=== PATIENT | male | born 1990 | race Caucasian/White ===

== ENCOUNTER 2016-04-05 11:06 | Emergency (ER) | payer MEDICAID ==
[~2016-04-05] VITALS: Ht 182.9 cm; Wt 79.4 kg
[2016-04-05 11:06] VITALS: BP 124/71; PULSE 78; RESP 18; TEMP 97.8; O2SAT 99
== END 2016-04-05 11:26 | disposition left against medical advice (07) ==
LOC: SED 11:06
DX: G89.29 Other chronic pain (principal); R03.0 Elevated blood-pressure reading, without diagnosis of hypertension; F98.8 Other specified behavioral and emotional disorders with onset usually occurring in childhood and adolescence; Z88.0 Allergy status to penicillin
CPT/HCPCS: 99281

== ENCOUNTER 2016-09-09 17:37 | Inpatient (IN) | payer MEDICAID ==
[~2016-09-09] VITALS: Ht 188 cm; Wt 89.8 kg
[2016-09-09 17:37] VITALS: BP_SYST 134
[2016-09-09] MEDS ORDERED: NACL 0.9% 1,000 ML IV SCH (17:51)
[2016-09-09] MEDS ORDERED: ONDANSETRON HCL 4 MG/2 ML VIAL IVP ONE (18:00)
[2016-09-09] MEDS ORDERED: MORPHINE 4 MG/ML INJ. SYRINGE IVP ONE (18:00)
[2016-09-09] MEDS ORDERED: VANCOMYCIN HCL 1,000 MG in D5W 250 ML IV ONE (18:00)
[2016-09-09] MEDS ORDERED: HYDROcodone/ACETAMIN 5-325 MG TAB (NORCO/ VICODIN) PO ONE (18:15)
[2016-09-09] MEDS ORDERED: ONDANSETRON 4 MG ODT TAB PO ONE (18:15)
[2016-09-09 18:24] LABS: BASOPHILS % (AUTO) 0.2 % (0.0-2.0); EOSINOPHILS # (AUTO) 0.2 K/uL (0.0-0.4); EOSINOPHILS % (AUTO) 1.5 % (0.0-4.0); HEMOGLOBIN 12.6 g/dL (14.0-18.0); LYMPHOCYTES # (AUTO) 1.7 K/uL (1.0-5.5); LYMPHOCYTES % (AUTO) 16.7 % (20.5-51.5); MEAN CORPUSCULAR HEMOGLOBIN 31 pg (27-31); MEAN CORPUSCULAR HGB CONC 34 % (32-36); MEAN CORPUSCULAR VOLUME 90 fL (79.0-98.0); MONOCYTES # (AUTO) 0.6 K/uL (0.0-1.0); MONOCYTES % (AUTO) 6.3 % (1.7-9.3); NEUTROPHILS # (AUTO) 7.8 K/uL (1.8-7.7); NEUTROPHILS % (AUTO) 75.3 % (40.0-70.0); PLATELET COUNT (AUTO) 319 K/uL (130-430); RED BLOOD CELL COUNT(AUTO) 4.14 MIL/uL (4.2-6.2); RED CELL DISTRIBUTION WIDTH 11.5 % (9.0-15.0); WHITE BLOOD COUNT (AUTO) 10.3 K/uL (4.8-10.8)
[2016-09-09 18:42] LABS: CALCIUM 8.8 mg/dL (8.4-11.0); CREATININE 1.19 mg/dL (0.55-1.30); POTASSIUM 3.6 mmol/L (3.5-5.1)
[2016-09-09] MEDS ORDERED: VANCOMYCIN HCL 1000 MG/VIAL IV ONE ×2 (18:45→20:29)
[2016-09-09 18:53] LABS: INR 0.9 (0.80-1.20)
[2016-09-09] MEDS ORDERED: MORPHINE 2 MG/ML INJ. SYRINGE IVP PRN ×2 (19:00→21:00)
[2016-09-09] MEDS ORDERED: SER25 PO (19:12)
[2016-09-09] MEDS ORDERED: ADDERAL PO (19:12)
[2016-09-09] MEDS ORDERED: OXYC20TA55 PO (19:12)
[2016-09-09] MEDS ORDERED: GABA-531 PO (19:12)
[2016-09-09 20:04] VITALS: BP_SYST 114
[2016-09-09 20:12] VITALS: BP_SYST 142
[2016-09-09] MEDS ORDERED: VANCOMYCIN HCL 500 MG/VIAL IV ONE (20:29)
[2016-09-09] MEDS ORDERED: MAGNESIUM SULFATE 50 ML IV PRN (21:00)
[2016-09-09] MEDS ORDERED: ONDANSETRON HCL 4 MG/2 ML VIAL IVP PRN (21:00)
[2016-09-09] MEDS ORDERED: POTASSIUM CHLORIDE 10 MEQ TAB.PRT.SR PO PRN (21:00)
[2016-09-09] MEDS ORDERED: QUEtiapine FUMARATE 25 MG TABLET PO SCH (21:00)
[2016-09-09] MEDS ORDERED: ACETAMINOPHEN 325 MG TABLET PO PRN (21:00)
[2016-09-09] MEDS ORDERED: DOCUSATE SODIUM 100 MG CAPSULE PO PRN (21:00)
[2016-09-09] MEDS ORDERED: ZOLPIDEM TARTRATE 5 MG TABLET PO PRN (21:00)
[2016-09-09] MEDS ORDERED: LORazepam 2 MG/ML VIAL IVP PRN (21:00)
[2016-09-09] MEDS: GABAPENTIN 300 MG CAPSULE PO SCH (21:12)
[2016-09-09] MEDS: oxyCODONE HCL 10 MG TAB.ER.12H PO SCH (21:13)
[2016-09-09] MEDS: VANCOMYCIN HCL 1,250 MG in NS 250 ML IV SCH (21:13)
[2016-09-10 00:08] VITALS: BP_SYST 147
[2016-09-10 03:59] VITALS: BP_SYST 132
[2016-09-10] MEDS: VANCOMYCIN HCL 1,250 MG in NS 250 ML IV SCH (05:15)
[2016-09-10] MEDS ORDERED: SULF1TAB48 PO (07:18)
[2016-09-10 08:00] VITALS: BP_SYST 131
[2016-09-10] MEDS: GABAPENTIN 300 MG CAPSULE PO SCH (08:21)
[2016-09-10] MEDS: oxyCODONE HCL 10 MG TAB.ER.12H PO SCH (08:22)
[2016-09-10] MEDS ORDERED: ADDERAL 30 MG PO SCH (09:00)
[2016-09-10] MEDS ORDERED: ADDERALL 30 MG PO SCH (09:00)
[2016-09-10 09:17] VITALS: BP_SYST 131
== END 2016-09-10 10:26 | disposition home or self-care (01) | DRG 383 ==
LOC: SED 17:37 → SMU 18:55
PROVIDERS: ADMIT General Practice; ATTEND General Practice
DX: L03.011 Cellulitis of right finger (principal); F11.20 Opioid dependence, uncomplicated; F42.9 Obsessive-compulsive disorder, unspecified; M79.7 Fibromyalgia; Z88.0 Allergy status to penicillin; Z79.899 Other long term (current) drug therapy
CPT/HCPCS: 36415; 80048; 83605; 85025; 85610-TC; 85730-TC; 87040-TC; 96374; 96375; 99285; J2270; J2405; J3370; J7030; J7040; J7050; Q0162

== ENCOUNTER 2016-09-24 14:55 | Emergency (ER) | payer MEDICAID ==
[~2016-09-24] VITALS: Ht 182.9 cm; Wt 90.7 kg
[~2016-09-24 14:55] MED LIST: ADDERAL PO; GABA-531 PO; OXYC20TA55 PO; SER25 PO; SULF1TAB48 PO
[2016-09-24 15:00] VITALS: BP_SYST 147
[2016-09-24] MEDS ORDERED: ONDANSETRON HCL 4 MG/2 ML VIAL IVP ONE (16:00)
[2016-09-24] MEDS ORDERED: MORPHINE 2 MG/ML INJ. SYRINGE IV ONE (16:00)
[2016-09-24] MEDS ORDERED: ONDANSETRON 4 MG ODT TAB PO ONE (16:15)
[2016-09-24] MEDS ORDERED: MORPHINE 2 MG/ML INJ. SYRINGE IM ONE (16:15)
[2016-09-24 16:22] LABS: BASOPHILS # (AUTO) 0.1 K/uL (0.0-0.2); BASOPHILS % (AUTO) 0.9 % (0.0-2.0); EOSINOPHILS # (AUTO) 0.2 K/uL (0.0-0.4); EOSINOPHILS % (AUTO) 3.1 % (0.0-4.0); HEMATOCRIT 34.7 % (36-54); HEMOGLOBIN 11.7 g/dL (14.0-18.0); LYMPHOCYTES # (AUTO) 1.5 K/uL (1.0-5.5); LYMPHOCYTES % (AUTO) 24.3 % (20.5-51.5); MEAN CORPUSCULAR HEMOGLOBIN 30 pg (27-31); MEAN CORPUSCULAR HGB CONC 34 % (32-36); MEAN CORPUSCULAR VOLUME 90 fL (79.0-98.0); MONOCYTES # (AUTO) 0.4 K/uL (0.0-1.0); MONOCYTES % (AUTO) 5.7 % (1.7-9.3); RED BLOOD CELL COUNT(AUTO) 3.87 MIL/uL (4.2-6.2); RED CELL DISTRIBUTION WIDTH 11.6 % (9.0-15.0); WHITE BLOOD COUNT (AUTO) 6.2 K/uL (4.8-10.8)
[2016-09-24 16:25] LABS: PLATELET COUNT (AUTO) 446 K/uL (130-430)
[2016-09-24 16:28] LABS: ANION GAP 8 (5-15); CALCIUM 8.7 mg/dL (8.4-11.0); CHLORIDE 104 mmol/L (98-107); CREATININE 0.99 mg/dL (0.55-1.30); GLUCOSE 99 mg/dL (70-99); POTASSIUM 3.7 mmol/L (3.5-5.1); SODIUM SERUM 141 mmol/L (136-145); UREA NITROGEN, BLOOD 12 mg/dL (8-21)
[2016-09-24] MEDS ORDERED: MORPHINE 4 MG/ML INJ. SYRINGE IM ONE (16:30)
[2016-09-24 16:39] LABS: GFR AFRICAN AMERICAN 117 mL/min (>90)
[2016-09-24 16:40] LABS: ALANINE AMINOTRANSFERASE 71 U/L (12-78); ALBUMIN 3.9 g/dL (3.4-4.8); AMYLASE 45 U/L (0-100); ASPARTATE AMINOTRANSFERASE 46 U/L (10-37); LIPASE 107 U/L (73-393); TOTAL BILIRUBIN 0.3 mg/dL (0.0-1.0); TOTAL PROTEIN, SERUM 8.1 g/dL (6.4-8.3)
[2016-09-24 18:01] LABS: BILIRUBIN,URINE NEGATIVE (NEGATIVE); BLOOD, URINE NEGATIVE (NEGATIVE); CLARITY/URINE CLEAR (CLEAR); COLOR,URINE YELLOW (YELLOW); GLUCOSE,URINE NEGATIVE (NEGATIVE); KETONES,URINE NEGATIVE (NEGATIVE); LEUKOCYTE ESTERASE ,URINE NEGATIVE (NEGATIVE); NITRITE, URINE NEGATIVE (NEGATIVE); PROTEIN URINE NEGATIVE (NEGATIVE); UROBILINOGEN,URINE 0.2 (0.2-1.0)
[2016-09-24 18:47] VITALS: BP_SYST 137
== END 2016-09-24 18:47 | disposition home or self-care (01) ==
LOC: SED 14:55
DX: T63.391A Toxic effect of venom of other spider, accidental (unintentional), initial encounter (principal); K82.8 Other specified diseases of gallbladder; R10.9 Unspecified abdominal pain; Y92.89 Other specified places as the place of occurrence of the external cause
CPT/HCPCS: 36415; 76700; 80053; 81003; 82150; 83690; 84484; 85025; 96372; 99285; J2270; Q0162

== ENCOUNTER 2017-08-17 19:29 | Emergency (ER) | payer MEDICAID ==
[~2017-08-17] VITALS: Ht 177.8 cm; Wt 93.0 kg
[2017-08-17 19:50] VITALS: BP_SYST 164
--- NOTE | 2017-08-17 20:00 | NUR ---
Patient to ER bed 4 to gown for evaluation. Side rails up.
--- NOTE | 2017-08-17 20:05 | NUR ---
Patient presents to ER with complaint of generalized rashes x2 days. Patient states episodes of pruritus. No other symptoms or complaints.
--- NOTE | 2017-08-17 20:14 | NUR ---
AMANDA Hernandez at bedside for medical evaluation.
--- NOTE | 2017-08-17 20:44 | NUR ---
Patient given written and verbal discharge instructions and verbalizes understanding. ER MD Hernandez discussed with patient the results and treatment provided. Patient in stable condition. ID arm band removed. Rx of Medrol given. Patient educated on pain management and to follow up with PMD. Pain Scale 0/10. Opportunity for questions provided and answered. Medication side effect fact sheet provided.
[2017-08-17 20:48] VITALS: BP_SYST 150
== END 2017-08-17 20:48 | disposition home or self-care (01) ==
LOC: SED 19:29
DX: L23.9 Allergic contact dermatitis, unspecified cause (principal); F29 Unspecified psychosis not due to a substance or known physiological condition; M85.2 Hyperostosis of skull; M79.7 Fibromyalgia; Z88.0 Allergy status to penicillin; Z79.899 Other long term (current) drug therapy
CPT/HCPCS: 99283

== ENCOUNTER 2018-03-06 22:08 | Emergency (ER) | payer MEDICAID ==
[~2018-03-06] VITALS: Ht 182.9 cm; Wt 99.8 kg
[2018-03-06 22:25] VITALS: BP_SYST 158
--- NOTE | 2018-03-06 22:28 | NUR ---
Patient to ER bed 07 to gown for evaluation. Side rails up. Report given to JENNYFER CARTER.
--- NOTE | 2018-03-06 22:30 | NUR ---
Patient A/O x 4, presented to ED c/o fever, headache and body aches since yesterday, pain 10/14. Pt took Tylenol and Oxycodone with no relief. Pt also c/o of nausea and vomiting. Pt denies neck pain. Pt denies chills. Pt denies chest pain. Pt denies diarrhea or constipation. Patient VSS. No SOB or distress noted. Will continue to monitor.
--- NOTE | 2018-03-06 22:34 | NUR ---
ER Dr. Robertson at bedside examining patient.
[2018-03-06] MEDS ORDERED: NACL 0.9% 1,000 ML IV ONE (22:45)
[2018-03-06] MEDS ORDERED: PROCHLORPERAZINE EDISYLATE 10 MG/2 ML VIAL IVP ONE (22:45)
[2018-03-06] MEDS ORDERED: DIPHENHYDRAMINE INJ 50 MG/ML VIAL IVP ONE (22:45)
--- NOTE | 2018-03-06 22:56 | NUR ---
#22 gauge angiocath placed to R hand. Use of asceptic technique. Opsite placed over site. Blood return noted. Flushed with 10 cc of normal saline. No evidence of infiltration noted. Patient tolerated well.
[2018-03-06] MEDS ORDERED: MORPHINE 4 MG/ML INJ. SYRINGE IVP ONE (23:00)
--- NOTE | 2018-03-06 23:20 | NUR ---
Patient VSS. IVF infusing well. Patient verbalizes relief. No SOB or distress noted. Will continue to monitor.
[2018-03-06] MEDS ORDERED: MAG HYDROX/AL HYDROX/SIMETH 30 ML, BELLADONNA ALKALOIDS/PHENOBARB 10 ML, LIDOCAINE VISC... PO ONE ×3 (23:45)
[2018-03-07 00:45] VITALS: BP_SYST 140
--- NOTE | 2018-03-07 00:45 | NUR ---
Patient given written and verbal discharge instructions and verbalizes understanding. ER MD discussed with patient the results and treatment provided. Patient in stable condition. ID arm band removed. IV catheter removed intact and dressing applied, no active bleeding. Rx of Zofran, Prilosec, Tamiflu given. Patient educated on pain management and to follow up with PMD. Pain Scale 2/10. Opportunity for questions provided and answered. Medication side effect fact sheet provided.
== END 2018-03-07 00:45 | disposition home or self-care (01) ==
LOC: SED 22:08
DX: J11.1 Influenza due to unidentified influenza virus with other respiratory manifestations (principal); R51 Headache; R11.2 Nausea with vomiting, unspecified; R03.0 Elevated blood-pressure reading, without diagnosis of hypertension; M79.7 Fibromyalgia; Z90.49 Acquired absence of other specified parts of digestive tract; Z88.0 Allergy status to penicillin; Z79.899 Other long term (current) drug therapy
CPT/HCPCS: 96361; 96374; 96375; 99283; J0780; J1200; J2001; J2270; J7030

== ENCOUNTER 2018-06-10 22:06 | Emergency (ER) | payer MEDICAID ==
[~2018-06-10] VITALS: Ht 182.9 cm; Wt 99.8 kg
[2018-06-10 22:32] VITALS: BP_SYST 144
[2018-06-10] MEDS ORDERED: GABA-331 PO (22:41)
[2018-06-10] MEDS ORDERED: KETOROLAC TROMETHAMINE 15 MG VIAL IVP ONE (22:45)
[2018-06-10] MEDS ORDERED: ACETAMINOPHEN 500 MG TABLET PO ONE (22:45)
[2018-06-10] MEDS ORDERED: NS 1000 ML IV.SOLN IV ONE (22:45)
[2018-06-10 23:44] LABS: HEMOGLOBIN 12.9 g/dL (14.0-18.0); MEAN CORPUSCULAR HEMOGLOBIN 32 pg (27-31); MEAN CORPUSCULAR HGB CONC 36 % (32-36); MEAN CORPUSCULAR VOLUME 88 fL (79.0-98.0); PLATELET COUNT (AUTO) 429 K/uL (130-430); RED BLOOD CELL COUNT(AUTO) 4.07 MIL/uL (4.2-6.2); RED CELL DISTRIBUTION WIDTH 15.8 % (9.0-15.0)
[2018-06-10 23:45] LABS: BASOPHILS % (AUTO) 0.6 % (0.0-2.0); EOSINOPHILS # (AUTO) 0.1 K/uL (0.0-0.4); EOSINOPHILS % (AUTO) 1.9 % (0.0-4.0); LYMPHOCYTES # (AUTO) 1.2 K/uL (1.0-5.5); LYMPHOCYTES % (AUTO) 20.5 % (20.5-51.5); MONOCYTES # (AUTO) 0.6 K/uL (0.0-1.0); MONOCYTES % (AUTO) 10.2 % (1.7-9.3); NEUTROPHILS % (AUTO) 66.8 % (40.0-70.0)
[2018-06-10 23:49] LABS: BILIRUBIN,URINE NEGATIVE (NEGATIVE); BLOOD, URINE 1+ (NEGATIVE); CLARITY/URINE CLEAR (CLEAR); COLOR,URINE YELLOW (YELLOW); GLUCOSE,URINE NEGATIVE (NEGATIVE); KETONES,URINE NEGATIVE (NEGATIVE); LEUKOCYTE ESTERASE ,URINE NEGATIVE (NEGATIVE); NITRITE, URINE NEGATIVE (NEGATIVE); PH,URINE 5.5 (5.0-8.0); PROTEIN URINE NEGATIVE (NEGATIVE); UROBILINOGEN,URINE 0.2 (0.2-1.0)
[2018-06-10 23:56] LABS: BACTERIA,URINE FEW /HPF (None Seen); WBC,URINE 0-3 /HPF (0-3)
[2018-06-11] MEDS ORDERED: MORPHINE 4 MG/ML INJ. SYRINGE IVP ONE
[2018-06-11 00:40] LABS: CALCIUM 8.5 mg/dL (8.4-11.0); CREATININE 1.2 mg/dL (0.55-1.30); POTASSIUM 3.6 mmol/L (3.5-5.1)
[2018-06-11 00:45] LABS: ALBUMIN 3.4 g/dL (3.4-4.8); TOTAL BILIRUBIN 0.3 mg/dL (0.0-1.0)
[2018-06-11 01:04] VITALS: BP_SYST 136
[2018-06-11 09:00] LABS: BARBITURATE, URINE NEGATIVE (NEG <=200); BENZODIAZEPINE, URINE NEGATIVE (NEG <=150); CANNABINOID, URINE POSITIVE (NEG <=50); COCAINE, URINE NEGATIVE (NEG <=150); METHAMPHETAMINES SCREEN,URINE NEGATIVE (NEG <=500); OPIATE, URINE POSITIVE (NEG <=100); PHENCYCLIDINE SCREEN,URINE NEGATIVE (NEG <=25); UR TRICYCLIC ANTIDEPRESSANTS NEGATIVE (NEG <=300); URINE AMPHETAMINE POSITIVE (NEG <=500); URINE METHADONE NEGATIVE (NEG <=200); URINE OXYCODONE SCREEN POSITIVE (NEG <=100); URINE PROPOXYPHENE SCREEN NEGATIVE (NEG <=300)
== END 2018-06-11 01:04 | disposition home or self-care (01) ==
LOC: SED 22:06
DX: N20.0 Calculus of kidney (principal); K59.00 Constipation, unspecified; L03.113 Cellulitis of right upper limb; D64.9 Anemia, unspecified; J11.1 Influenza due to unidentified influenza virus with other respiratory manifestations; R11.2 Nausea with vomiting, unspecified; F17.210 Nicotine dependence, cigarettes, uncomplicated; R03.0 Elevated blood-pressure reading, without diagnosis of hypertension; M79.7 Fibromyalgia; F98.8 Other specified behavioral and emotional disorders with onset usually occurring in childhood and adolescence; Z88.0 Allergy status to penicillin; Z79.899 Other long term (current) drug therapy
CPT/HCPCS: 36415; 74176; 80053; 80307; 81000; 83605; 85025; 86710; 87040; 87086; 96361; 96374; 96375; 99284; J1885; J2270; J7030

== ENCOUNTER 2018-11-28 22:57 | Emergency (ER) | payer MEDICAID ==
[~2018-11-28] VITALS: Ht 195.6 cm; Wt 95.3 kg
[~2018-11-28 22:57] MED LIST changes: +GABA-331 PO; -GABA-531 PO
[2018-11-28 23:09] VITALS: BP_SYST 156
[2018-11-28] MEDS ORDERED: NACL 0.9% 1,000 ML IV ONE (23:51)
[2018-11-29] MEDS ORDERED: PANTOPRAZOLE SODIUM 40 MG/VIAL (PROTONIX) IVP ONE
[2018-11-29] MEDS ORDERED: ONDANSETRON HCL 4 MG/2 ML VIAL IVP ONE
[2018-11-29] MEDS ORDERED: ONDA4TAB5 PO (00:17)
[2018-11-29] MEDS ORDERED: CARI350T27 PO (00:18)
[2018-11-29] MEDS ORDERED: TRAM50TA2 PO (00:19)
[2018-11-29] MEDS ORDERED: METR500T PO (00:20)
[2018-11-29] MEDS ORDERED: DIAZ5TAB4 PO (00:21)
[2018-11-29] MEDS ORDERED: FAMO20TA8 PO (00:21)
[2018-11-29] MEDS ORDERED: CEFU250T85 PO (00:22)
[2018-11-29 00:58] LABS: BASOPHILS % (AUTO) 0.4 % (0.0-2.0); BILIRUBIN,URINE NEGATIVE (NEGATIVE); BLOOD, URINE NEGATIVE (NEGATIVE); CLARITY/URINE CLEAR (CLEAR); COLOR,URINE YELLOW (YELLOW); EOSINOPHILS # (AUTO) 0.1 K/uL (0.0-0.4); EOSINOPHILS % (AUTO) 1.4 % (0.0-4.0); GLUCOSE,URINE NEGATIVE (NEGATIVE); HEMATOCRIT 35.2 % (36-54); HEMOGLOBIN 12.3 g/dL (14.0-18.0); KETONES,URINE NEGATIVE (NEGATIVE); LEUKOCYTE ESTERASE ,URINE NEGATIVE (NEGATIVE); LYMPHOCYTES # (AUTO) 1.4 K/uL (1.0-5.5); LYMPHOCYTES % (AUTO) 20.9 % (20.5-51.5); MEAN CORPUSCULAR HEMOGLOBIN 32 pg (27-31); MEAN CORPUSCULAR HGB CONC 35 % (32-36); MEAN CORPUSCULAR VOLUME 92 fL (79.0-98.0); MONOCYTES # (AUTO) 0.5 K/uL (0.0-1.0); MONOCYTES % (AUTO) 7.3 % (1.7-9.3); NEUTROPHILS # (AUTO) 4.5 K/uL (1.8-7.7); NITRITE, URINE NEGATIVE (NEGATIVE); PLATELET COUNT (AUTO) 243 K/uL (130-430); PROTEIN URINE NEGATIVE (NEGATIVE); RED BLOOD CELL COUNT(AUTO) 3.84 MIL/uL (4.2-6.2); RED CELL DISTRIBUTION WIDTH 14.2 % (9.0-15.0); UROBILINOGEN,URINE 0.2 (0.2-1.0); WHITE BLOOD COUNT (AUTO) 6.5 K/uL (4.8-10.8)
[2018-11-29 01:15] LABS: BARBITURATE, URINE NEGATIVE (NEG <=200); BENZODIAZEPINE, URINE POSITIVE (NEG <=150); CANNABINOID, URINE POSITIVE (NEG <=50); CHLORIDE 104 mmol/L (98-107); COCAINE, URINE NEGATIVE (NEG <=150); GLUCOSE 108 mg/dL (70-99); METHAMPHETAMINES SCREEN,URINE NEGATIVE (NEG <=500); OPIATE, URINE NEGATIVE (NEG <=100); PHENCYCLIDINE SCREEN,URINE NEGATIVE (NEG <=25); UR TRICYCLIC ANTIDEPRESSANTS NEGATIVE (NEG <=300); UREA NITROGEN, BLOOD 11 mg/dL (8-21); URINE AMPHETAMINE NEGATIVE (NEG <=500); URINE METHADONE NEGATIVE (NEG <=200); URINE OXYCODONE SCREEN NEGATIVE (NEG <=100); URINE PROPOXYPHENE SCREEN NEGATIVE (NEG <=300)
[2018-11-29 01:17] LABS: PROTHROMBIN TIME 10.4 SECS (9.5-12.5)
[2018-11-29 01:21] LABS: ALBUMIN 3.8 g/dL (3.4-4.8); ASPARTATE AMINOTRANSFERASE 25 U/L (10-37); TOTAL BILIRUBIN 0.3 mg/dL (0.0-1.0)
[2018-11-29 01:23] LABS: ALANINE AMINOTRANSFERASE 46 U/L (12-78); ANION GAP 7 (5-15); CALCIUM 8.9 mg/dL (8.4-11.0); CREATININE 0.86 mg/dL (0.55-1.30); LIPASE 60 U/L (73-393); POTASSIUM 4.1 mmol/L (3.5-5.1); SODIUM SERUM 140 mmol/L (136-145)
[2018-11-29 01:26] LABS: ALCOHOL, BLOOD < 3 mg/dL (<10); GFR AFRICAN AMERICAN 134 mL/min (>90)
[2018-11-29] MEDS ORDERED: fentaNYL CITRATE/PF 100 MCG/2 ML AMP IVP ONE ×2 (01:30)
[2018-11-29 03:00] VITALS: BP_SYST 133
[2018-11-29 04:46] LABS: ACETAMINOPHEN < 1 ug/mL (1-30)
== END 2018-11-29 03:00 | disposition home or self-care (01) ==
LOC: SED 22:57
DX: R45.851 Suicidal ideations (principal); M79.7 Fibromyalgia; F90.9 Attention-deficit hyperactivity disorder, unspecified type; Z88.0 Allergy status to penicillin; Z79.899 Other long term (current) drug therapy
CPT/HCPCS: 36415; 70450; 71045; 80053; 80307; 81003; 83690; 84484; 85025; 85610; 85730; 96374; 96375; 96376; 99284; C9113; G0480; G0481; G0482; J2405; J3010; J7030

== ENCOUNTER 2018-12-28 03:03 | Emergency (ER) | payer MEDICAID ==
[~2018-12-28] VITALS: Ht 182.9 cm; Wt 99.8 kg
[~2018-12-28 03:03] MED LIST changes: -ADDERAL PO; +CARI350T27 PO; +CEFU250T85 PO; +DIAZ5TAB4 PO; +FAMO20TA8 PO; +METR500T PO; +ONDA4TAB5 PO; -OXYC20TA55 PO; -SER25 PO; +TRAM50TA2 PO
[2018-12-28 03:10] VITALS: BP_SYST 92
--- NOTE | 2018-12-28 03:15 | NUR ---
Patient to ER bed 8 for evaluation. Side rails up.
--- NOTE | 2018-12-28 03:30 | NUR ---
Pt complains of sudden right side abdominal pain and nausea since midnight. Pt states he was sleeping and woke up suddenly with pain. Pt has not vomited but states he has been dry-heaving. Pt denies fever. NO other injuries/complaints per patient or noted.
--- NOTE | 2018-12-28 03:38 | NUR ---
ER Dr. Fam at bedside examining patient.
[2018-12-28] MEDS ORDERED: ONDANSETRON HCL 4 MG/2 ML VIAL IVP ONE (03:45)
[2018-12-28] MEDS ORDERED: KETOROLAC TROMETHAMINE 30 MG VIAL IVP ONE (03:45)
[2018-12-28] MEDS ORDERED: PANTOPRAZOLE SODIUM 40 MG/VIAL (PROTONIX) IVP ONE (04:00)
[2018-12-28] MEDS ORDERED: fentaNYL CITRATE/PF 100 MCG/2 ML AMP IVP ONE (04:00)
[2018-12-28] MEDS ORDERED: METOCLOPRAMIDE HCL 10 MG/2 ML VIAL IVP ONE (04:00)
[2018-12-28 04:02] LABS: BASOPHILS % (AUTO) 0.5 % (0.0-2.0); EOSINOPHILS # (AUTO) 0.1 K/uL (0.0-0.4); EOSINOPHILS % (AUTO) 1.5 % (0.0-4.0); HEMATOCRIT 41.2 % (36-54); LYMPHOCYTES # (AUTO) 1.6 K/uL (1.0-5.5); LYMPHOCYTES % (AUTO) 22.6 % (20.5-51.5); MEAN CORPUSCULAR HEMOGLOBIN 31 pg (27-31); MEAN CORPUSCULAR HGB CONC 34 % (32-36); MEAN CORPUSCULAR VOLUME 92 fL (79.0-98.0); MONOCYTES # (AUTO) 0.5 K/uL (0.0-1.0); MONOCYTES % (AUTO) 7.2 % (1.7-9.3); NEUTROPHILS # (AUTO) 4.7 K/uL (1.8-7.7); NEUTROPHILS % (AUTO) 68.2 % (40.0-70.0); PLATELET COUNT (AUTO) 288 K/uL (130-430); RED BLOOD CELL COUNT(AUTO) 4.49 MIL/uL (4.2-6.2); RED CELL DISTRIBUTION WIDTH 13.9 % (9.0-15.0); WHITE BLOOD COUNT (AUTO) 6.9 K/uL (4.8-10.8)
[2018-12-28 04:16] LABS: CALCIUM 8.7 mg/dL (8.4-11.0); CREATININE 0.98 mg/dL (0.55-1.30); POTASSIUM 4.3 mmol/L (3.5-5.1)
--- NOTE | 2018-12-28 04:16 | NUR ---
Ultrasound at bedside. Pt tolerated well.
[2018-12-28 04:20] LABS: ALBUMIN 4.2 g/dL (3.4-4.8); TOTAL BILIRUBIN 0.2 mg/dL (0.0-1.0)
[2018-12-28] MEDS ORDERED: NACL 0.9% 1,000 ML IV ONE (04:30)
[2018-12-28 06:19] VITALS: BP_SYST 102
--- NOTE | 2018-12-28 06:19 | NUR ---
Patient given written and verbal discharge instructions and verbalizes understanding. ER MD discussed with patient the results and treatment provided. Patient in stable condition. ID arm band removed. IV catheter removed intact and dressing applied, no active bleeding. Rx of Reglan and Benadryl given. Patient educated on pain management and to follow up with PMD. Pain Scale 0. Opportunity for questions provided and answered. Medication side effect fact sheet provided. Patient has called for a ride and is observed walking with steady gait while exiting the ER. Pt is alert and oriented prior to discharge and vital signs were stable.
== END 2018-12-28 06:19 | disposition home or self-care (01) ==
LOC: SED 03:03
DX: R10.11 Right upper quadrant pain (principal); R11.2 Nausea with vomiting, unspecified; Z88.0 Allergy status to penicillin; Z88.5 Allergy status to narcotic agent
CPT/HCPCS: 36415; 76700; 80053; 83690; 85025; 93005; 96361; 96374; 96375; 99284; C9113; J1885; J2405; J2765; J3010; J7030

== ENCOUNTER 2018-12-30 18:52 | Emergency (ER) | payer MEDICAID ==
[~2018-12-30] VITALS: Ht 182.9 cm; Wt 108.9 kg
[2018-12-30 18:54] VITALS: BP_SYST 132
--- NOTE | 2018-12-30 18:58 | NUR ---
Patient to ER bed 02 for evaluation. Side rails up.
[2018-12-30] MEDS ORDERED: ACTIVATED CHARCOAL 50 GM ORAL.SUSP PO ONE (19:00)
--- NOTE | 2018-12-30 19:10 | NUR ---
RN at bedside. IV access obtained and blood draw for labs obtained.
[2018-12-30 19:14] LABS: BASOPHILS % (AUTO) 0.4 % (0.0-2.0); EOSINOPHILS # (AUTO) 0.2 K/uL (0.0-0.4); HEMATOCRIT 37.3 % (36-54); HEMOGLOBIN 12.6 g/dL (14.0-18.0); LYMPHOCYTES # (AUTO) 1.6 K/uL (1.0-5.5); MEAN CORPUSCULAR HEMOGLOBIN 31 pg (27-31); MEAN CORPUSCULAR HGB CONC 34 % (32-36); MEAN CORPUSCULAR VOLUME 92 fL (79.0-98.0); MONOCYTES # (AUTO) 0.4 K/uL (0.0-1.0); MONOCYTES % (AUTO) 6.9 % (1.7-9.3); NEUTROPHILS # (AUTO) 3.9 K/uL (1.8-7.7); NEUTROPHILS % (AUTO) 63.7 % (40.0-70.0); PLATELET COUNT (AUTO) 260 K/uL (130-430); RED BLOOD CELL COUNT(AUTO) 4.06 MIL/uL (4.2-6.2); WHITE BLOOD COUNT (AUTO) 6.1 K/uL (4.8-10.8)
[2018-12-30 19:24] LABS: ANION GAP 5 (5-15); CALCIUM 8.8 mg/dL (8.4-11.0); CHLORIDE 107 mmol/L (98-107); GLUCOSE 79 mg/dL (70-99); POTASSIUM 3.5 mmol/L (3.5-5.1); SODIUM SERUM 140 mmol/L (136-145); UREA NITROGEN, BLOOD 14 mg/dL (8-21)
[2018-12-30 19:25] LABS: GFR AFRICAN AMERICAN 71 mL/min (>90)
[2018-12-30 19:30] LABS: ALANINE AMINOTRANSFERASE 42 U/L (12-78); ALBUMIN 3.8 g/dL (3.4-4.8); ASPARTATE AMINOTRANSFERASE 24 U/L (10-37); TOTAL BILIRUBIN 0.4 mg/dL (0.0-1.0)
[2018-12-30 19:33] LABS: ACETAMINOPHEN < 1 ug/mL (1-30); ALCOHOL, BLOOD < 3 mg/dL (<10)
--- NOTE | 2018-12-30 20:06 | NUR ---
PT appears to be irate, out of bed. Pt is being verbally abusive to staff. States, "You are patronizing me." ER MD made aware.
--- NOTE | 2018-12-30 20:10 | NUR ---
ER at bedside examining patient.
--- NOTE | 2018-12-30 20:26 | NUR ---
Pt asked for juice. I informed pt that it needs to be cleared by the doctor. Pt continues to be verbally absusive threatening myself. Security called.
[2018-12-30 20:52] VITALS: BP_SYST 132
--- NOTE | 2018-12-30 20:52 | NUR ---
Patient given written and verbal discharge instructions and verbalizes understanding. ER MD Dr. Darby discussed with patient the results and treatment provided. Patient in stable condition. ID arm band removed. IV catheter removed intact and dressing applied, no active bleeding. Patient educated on pain management and to follow up with PMD. Pain Scale 0/10. Opportunity for questions provided and answered. Medication side effect fact sheet provided.
--- NOTE | 2018-12-30 20:55 | NUR ---
PT able to ambulate with steady gait with guardian/ roommate Tammi. Pt states, "Thank you again to everyone."
== END 2018-12-30 20:55 | disposition home or self-care (01) ==
LOC: SED 18:52
DX: T40.7X1A Poisoning by cannabis (derivatives), accidental (unintentional), initial encounter (principal); Z88.0 Allergy status to penicillin; Z88.5 Allergy status to narcotic agent; Z79.899 Other long term (current) drug therapy; Y92.89 Other specified places as the place of occurrence of the external cause
CPT/HCPCS: 36415; 80053; 85025; 99283; G0480; G0481; G0482